=== PATIENT | female | born 1990 | race Two or more races ===

== ENCOUNTER 2017-04-20 16:42 | Emergency (ER) | payer OTHER ==
--- NOTE | 2017-04-20 17:04 | PDOC ---
Rapid Medical Evaluation Chief Complaint: Chest Pain Time Seen by Provider: 04/20/17 17:01 Medical Evaluation: Allergies Allergy/AdvReac Type Severity Reaction Status Date / Time No Known Allergies Allergy Verified 04/20/17 17:01 04/20/17 17:02 The patient presents with a chief complaint of: left sided chest pain, dizzy, and sob I have performed a brief in-person evaluation of this patient. Pertinent physical exam findings: no reproducible pain, hr 98 I have ordered the following:cardiac profile, d- dimer, ekg, upreg , cbc, comp The patient will proceed to the ED for further evaluation. Discharge Disposition - Diagnosis Chest pain - Referrals - Patient Instructions - Post Discharge Activity
[2017-04-20 17:06] VITALS: BP 139/108; PULSE 89; TEMP 98; BMI 19.7
[2017-04-20 18:06] LABS: BASOPHIL 0.6 % (0-2.0); EOSINOPHIL 1.3 % (0-4.5); MCH 29.7 pg (25.7-33.7); MCHC 33.5 g/dl (32.0-36.0); MEAN CELL VOLUME 88.8 fl (80-96); MEAN PLT VOLUME 9.3 fl (7.5-11.1); NEUTROPHILS 45.9 % (42.8-82.8); PLATELET COUNT 249 K/MM3 (134-434); RDW 13.1 % (11.6-15.6); WHITE BLOOD COUNT 4.5 K/mm3 (4.0-10.0)
[2017-04-20 18:35] LABS: ALBUMIN 4.1 g/dl (3.4-5.0); ANION GAP 5 (8-16); CALCIUM 8.8 mg/dL (8.5-10.1); CO2 26 mmol/L (21-32); CREATININE 0.8 mg/dL (0.55-1.02); GLUCOSE,RANDOM 97 mg/dL (74-106); SGOT/AST 10 U/L (15-37); SGPT/ALT 15 U/L (12-78)
[2017-04-20 18:38] LABS: ALK PHOS 70 U/L (45-117); BILIRUBIN,TOTAL 0.4 mg/dL (0.2-1.0); CPK 170 IU/L (26-192); TOT PROT 8.2 g/dl (6.4-8.2); TROPONIN I < 0.02 ng/ml (0.00-0.05)
--- NOTE | 2017-04-20 20:05 | PDOC ---
History of Present Illness - General Exam Limitations: No Limitations - History of Present Illness Initial Comments: 04/20/17 20:57 Patient is a 26 year old female with no significant past medical history who presents to the ED with complaints of chest pain that began 2 weeks ago. Patient reports experiencing intermittent chest pain that she states has intensified for the last 3 days. She reports chest pain is a sharp pain that is localized in her epigastric region. Patient states for the last 3 days her chest pain episodes have been beginning to last longer and radiate from her right to her left side. Patient reports taking antacid and anti inflammatories for the last 3 days with no relief. Denies SOB. Denies nausea, vomiting. Denies fever, coughing, chills. Denies contact with sick individuals, out of state travel. Denies any other symptoms. Allergies: None Social history: No smoking. No alcohol. No illicit drugs. Surgical history: None PMD: Dr. Kalyn Guzmán <Aidan Gillette - Last Filed: 04/20/17 20:57> - General History Source: Patient <Stephen Tran - Last Filed: 04/20/17 22:16> - General Chief Complaint: Chest Pain Stated Complaint: CHEST PAIN Time Seen by Provider: 04/20/17 17:01 Past History <Aidan Gillette - Last Filed: 04/20/17 20:57> - Past Medical History COPD: No - Immunization History Immunization Up to Date: Yes - Suicide/Smoking/Psychosocial Hx Smoking History: Never smoked Have you smoked in the past 12 months: No Information on smoking cessation initiated: No Hx Alcohol Use: No Drug/Substance Use Hx: No Substance Use Type: None <Stephen Tran - Last Filed: 04/20/17 22:16> - Past Medical History Allergies/Adverse Reactions: Allergies Allergy/AdvReac Type Severity Reaction Status Date / Time No Known Allergies Allergy Verified 04/20/17 17:01 Review of Systems - Review of Systems Able to Perform ROS?: Yes Comments:: 04/20/17 20:57 CONSTITUTIONAL: Absent: fever, no chills, no fatigue EYES: Absent: visual changes ENT: Absent: ear pain, no sore throat CARDIOVASCULAR: +Chest pain Absent: no palpitations RESPIRATORY: Absent: cough, no SOB GI: Absent: abdominal pain, no nausea, no vomiting, no constipation, no diarrhea GENITOURINARY: Absent: dysuria, no frequency, no hematuria MUSCULOSKELETAL: Absent: back pain, no arthralgia, no myalgia SKIN: Absent: rash All Other Systems: Reviewed and Negative <LetaAidan - Last Filed: 04/20/17 20:57> *Physical Exam - Vital Signs Last Vital Signs Temp Pulse Resp BP Pulse Ox 98.0 F 89 17 139/108 100 04/20/17 17:02 04/20/17 17:02 04/20/17 17:02 04/20/17 17:02 04/20/17 17:02 - Physical Exam Comments: 04/20/17 20:58 GENERAL: Well-appearing, well-nourished. No apparent distress. HEENT: Normocephalic, atraumatic. PERRL, EOM intact. CARDIOVASCULAR: Normal S1, S2. Regular rate and rhythm. PULMONARY: Clear to auscultation bilaterally. ABDOMEN: Soft, non-distended, non-tender. EXTREMITIES: Normal ROM in all four extremities. No gross deformities. SKIN: Warm, dry. No rash NEUROLOGICAL: No focal neurological deficits. <LetaAidan - Last Filed: 04/20/17 20:57> - Vital Signs Last Vital Signs Temp Pulse Resp BP Pulse Ox 98.0 F 89 17 139/108 100 04/20/17 17:02 04/20/17 17:02 04/20/17 17:02 04/20/17 17:02 04/20/17 17:02 <Stephen Tran - Last Filed: 04/20/17 22:16> ED Treatment Course - LABORATORY CBC & Chemistry Diagram: 04/20/17 17:25 04/20/17 17:25 - ADDITIONAL ORDERS Additional order review: Laboratory Results 04/20/17 04/20/17 04/20/17 17:25 17:25 17:25 D-Dimer 541 H Sodium 138 Potassium 4.1 Chloride 107 Carbon Dioxide 26 Anion Gap 5 L BUN 11 Creatinine 0.8 Creat Clearance w eGFR > 60 Random Glucose 97 Calcium 8.8 Total Bilirubin 0.4 AST 10 L ALT 15 Alkaline Phosphatase 70 Creatine Kinase 170 Creatine Kinase Index 0.5 CK-MB (CK-2) < 1.000 Troponin I < 0.02 Total Protein 8.2 Albumin 4.1 Urine HCG, Qual Negative 04/20/17 17:25 RBC 4.46 MCV 88.8 MCHC 33.5 RDW 13.1 MPV 9.3 Neutrophils % 45.9 Lymphocytes % 42.6 H Monocytes % 9.6 Eosinophils % 1.3 Basophils % 0.6 <Aidan Gillette - Last Filed: 04/20/17 20:57> - LABORATORY CBC & Chemistry Diagram: 04/20/17 17:25 04/20/17 17:25 - ADDITIONAL ORDERS Additional order review: Laboratory Results 04/20/17 04/20/17 17:25 17:25 D-Dimer 541 H Sodium 138 Potassium 4.1 Chloride 107 Carbon Dioxide 26 Anion Gap 5 L BUN 11 Creatinine 0.8 Creat Clearance w eGFR > 60 Random Glucose 97 Calcium 8.8 Total Bilirubin 0.4 AST 10 L ALT 15 Alkaline Phosphatase 70 Creatine Kinase 170 Creatine Kinase Index 0.5 CK-MB (CK-2) < 1.000 Troponin I < 0.02 Total Protein 8.2 Albumin 4.1 04/20/17 17:25 RBC 4.46 MCV 88.8 MCHC 33.5 RDW 13.1 MPV 9.3 Neutrophils % 45.9 Lymphocytes % 42.6 H Monocytes % 9.6 Eosinophils % 1.3 Basophils % 0.6 <Stephen Tran - Last Filed: 04/20/17 22:16> *DC/Admit/Observation/Transfer - Attestations Scribe Attestion: 04/20/17 20:58 Documentation prepared by Aidan Gillette, acting as medical records auditor for Stephen Tran MD/DO. <Aidan Gillette - Last Filed: 04/20/17 20:57> - Discharge Dispostion Admit: No <Stephen Tran - Last Filed: 04/20/17 22:16> Diagnosis at time of Disposition: Chest pain - Discharge Dispostion Disposition: HOME Condition at time of disposition: Stable - Referrals Referrals: Kalyn Salazar MD [Primary Care Provider] - Cruz Sotelo MD [Staff Physician] - Cuauhtemoc Fleming MD [Staff Physician] - - Patient Instructions Printed Discharge Instructions: DI for Chest Pain Additional Instructions: Please follow up with your doctor for further evaluation. - Post Discharge Activity
--- NOTE | 2017-04-21 10:45 | EKG ---
Test Reason : Blood Pressure : / mmHG Vent. Rate : 089 BPM Atrial Rate : 089 BPM P-R Int : 114 ms QRS Dur : 084 ms QT Int : 338 ms P-R-T Axes : 060 064 039 degrees QTc Int : 411 ms NORMAL SINUS RHYTHM WITH SINUS ARRHYTHMIA NONSPECIFIC INTRAVENTRICULAR CONDUCTION DEFECT RSR' OR QR PATTERN IN V1 SUGGESTS RIGHT VENTRICULAR CONDUCTION DELAY NORMAL ECG NO PREVIOUS ECGS AVAILABLE Confirmed by MD SHEFALI, RAHUL ([id number]) on 04/21/2017 10:44:56 AM Referred By: Confirmed By:RAHUL MEEHAN MD
== END 2017-04-20 22:24 | disposition home or self-care (01) ==
LOC: JER 16:42
DX: R06.02 Shortness of breath (principal); R07.89 Other chest pain
CPT/HCPCS: 36415; 71275-TC; 80053; 82550; 82553; 84484; 84703; 85025; 85379; 93005; 93010; 99281-25

== ENCOUNTER 2017-05-24 08:34 | Emergency (ER) | payer OTHER ==
[2017-05-24 08:45] VITALS: BP 117/57; PULSE 88; TEMP 97.8; BMI 20.7
[2017-05-24] MEDS ORDERED: IBUPROFEN 600 MG TABLET (FP) PO ONE ×2 (09:32→09:34)
--- NOTE | 2017-05-24 09:38 | PDOC ---
History of Present Illness - General Chief Complaint: Injury Stated Complaint: FALL Time Seen by Provider: 05/24/17 08:55 History Source: Patient Exam Limitations: No Limitations - History of Present Illness Initial Comments: 05/24/17 09:38 While carrying 3-year-old daughter in arm slipped and fell forward twisting her left ankle and child both falling onto ground. States is unable to bear weight on left foot and ankle, but denies knee hip or other injury. No head injury , Arms are intact Occurred: reports: just prior to arrival Severity: reports: mild, moderate Pain Location: reports: lower extremity (left foot and ankle) Method of Injury: Yes: fall Modifying Factors: improves with: None Loss of Consciousness: no loss of consciousness Past History - Travel Traveled outside of the country in the last 30 days: No Close contact w/someone who was outside of country & ill: No - Past Medical History Allergies/Adverse Reactions: Allergies Allergy/AdvReac Type Severity Reaction Status Date / Time No Known Allergies Allergy Verified 05/24/17 08:45 Home Medications: Ambulatory Orders NK [No Known Home Medication] 05/24/17 COPD: No - Immunization History Immunization Up to Date: Yes - Suicide/Smoking/Psychosocial Hx Smoking History: Never smoked Have you smoked in the past 12 months: No Hx Alcohol Use: Yes (SOCIAL) Drug/Substance Use Hx: No Substance Use Type: None Trauma Specific PMHX - Complaint Specific PMHX Back Injury: No Neck Injury: No Review of Systems - Review of Systems Able to Perform ROS?: Yes Is the patient limited Kiswahili proficient: Yes Constitutional: Yes: Symptoms Reported, See HPI, Malaise. No: Fever HEENTM: Yes: See HPI, Nose Congestion. No: Symptoms Reported Musculoskeletal: Yes: Symptoms Reported, See HPI, Joint Pain, Joint Swelling Neurological: Yes: Symptoms reported All Other Systems: Reviewed and Negative *Physical Exam - Vital Signs Last Vital Signs Temp Pulse Resp BP Pulse Ox 97.8 F 88 20 117/57 99 05/24/17 08:41 05/24/17 08:41 05/24/17 08:41 05/24/17 08:41 05/24/17 08:41 - Physical Exam General Appearance: Yes: Appropriately Dressed, Apparent Distress, Moderate Distress HEENT: positive: AGUSTIN, Normal ENT Inspection, TMs Normal, Pharynx Normal Neck: positive: Tender, Supple Respiratory/Chest: positive: Lungs Clear Musculoskeletal: positive: Normal Inspection Extremity: positive: Normal Capillary Refill. negative: Normal Inspection, Normal Range of Motion (did with tenderness reproduced along the lateral and medial aspect metal malleolus with swelling to the lateral malleolus. Has no point tenderness to navicular bone metatarsal or negative squeeze test. Neurovascular intact to toes) Integumentary: positive: Normal Color, Dry, Warm Neurologic: positive: engineer conductor II-XII NML intact, Fully Oriented, Alert, Normal Mood/ Affect, Normal Response, Motor Strength 09/16 ED Treatment Course - RADIOLOGY Radiology Studies Ordered: Category Date Time Status ANKLE & FOOT-LEFT* [RAD] Stat Radiology 05/24/17 09:32 Ordered Progress Note - Progress Note Progress Note: Left ankle sprain, Joel, Aircast and crutches provided. We'll treat with ibuprofen and follow up with Orth O, givren 2 tablets of Percocet for severe pain today *DC/Admit/Observation/Transfer Diagnosis at time of Disposition: Left ankle sprain Qualifiers: Encounter type: initial encounter Involved ligament of ankle: other ligament Qualified Code(s): S93.492A - Sprain of other ligament of left ankle, initial encounter - Discharge Dispostion Disposition: HOME Condition at time of disposition: Stable - Referrals Referrals: Kalyn Salazar MD [Primary Care Provider] - William Conti MD [Staff Physician] - - Patient Instructions Printed Discharge Instructions: DI for Ankle Sprain Additional Instructions: Rest, ice to area on and off for 15 minutes 4-6 times a day Avoid heavy lifting or exercise until pain and swelling is resolved or until further directed Keep area highly elevated to reduce swelling Use splints/Joel wrap as directed Followup with orthopedist in one to 2 days if not improving, if significantly improved may wait one week for followup with orthopedist May use ibuprofen 2-200 mg tablets every 6 hours as needed for pain - Post Discharge Activity Forms/Work/School Notes: Back to Work
== END 2017-05-24 10:18 | disposition home or self-care (01) ==
LOC: JERFT 08:34
PROC: 2W3RX1Z Immobilization of Left Lower Leg using Splint (ICD-10-PCS; principal; 2017-05-24)
DX: S93.492A Sprain of other ligament of left ankle, initial encounter (principal); W01.0XXA Fall on same level from slipping, tripping and stumbling without subsequent striking against object, initial encounter; Y93.89 Activity, other specified; Y92.9 Unspecified place or not applicable
CPT/HCPCS: 73610-TC-LT; 73630-TC-LT; 99282-25